=== PATIENT | female | born 1955 | race Caucasian/White ===

== ENCOUNTER → 2016-05-31 | Outpatient (CLI) | payer OTHER ==
[~2016-05-31] MED LIST: ADVIL200 MG PO; ASPIRIN 81M81 MG/TA2 PO; BUSPAR10 MG PO; COMBIRESP IH; EFFEXOR 75M75 MG/TAB PO; FLOVENT 110MCG7.9 GM IH; ISOPTIN SR180 M1 PO; KLONOPIN 0.5MG0.5 MG PO; LEVAQUIN 750MG750 M1 PO; MOBIC15 MG PO; NEURONTIN100 MG/CAP PO; NORCO 325 MG-7.1 TAB PO; PROAIR HFA0.09 MG/AC IH; PROTONIX20 MG PO; RT SPIRIVA18 MCG IH; SEROQUEL 2525 MG/TAB PO; STOOL SOFTENER100 M2 PO; ULTRAM 50MG TAB50 MG PO
== END ==
LOC: COL.PUL 09:37
DX: Z02.71 Encounter for disability determination (principal); J44.9 Chronic obstructive pulmonary disease, unspecified

== ENCOUNTER 2020-11-08 10:54 | Emergency (ER) | payer MEDICARE, BC ==
[~2020-11-08] VITALS: Ht 160 cm; Wt 79.1 kg
[2020-11-08 11:08] VITALS: TEMP 97.3
[2020-11-08 11:34] LABS: BASO # 0.1 (0.0-0.2); BASO % 1.1 % (0.0-2.0); EOS % 0.5 % (0-4.0); GRAN # 6.2 (1.4-6.5); GRAN % 76.5 % (42.2-75.2); HEMOGLOBIN 11.4 g/dl (12.5-16.0); LYMPH # 1.5 (1.2-3.4); LYMPH % 17.9 % (20.0-51.0); MEAN CELL VOLUME 93 fl (80.0-100.0); MEAN CORPUSCULAR HEMOGLOBIN 31 pg (27.0-31.0); MEAN CORPUSCULAR HGB CONC 33 g/dl (33.0-37.0); MEAN PLATELET VOLUME 12.1 fl (7.4-10.4); MONO # 0.3 (0.1-0.6); MONO % 3.8 % (1.7-9.3); PLATELET COUNT 280 K/mm3 (130-400); RED BLOOD COUNT 3.66 M/mm3 (4.10-5.30); REDCELL DISTRIBUTION WIDTH-CV 13.5 % (11.5-14.5)
[2020-11-08 11:54] LABS: HEMATOCRIT 34.2 % (37.0-47.0)
[2020-11-08 12:40] LABS: ALANINE AMINOTRANSFERASE 16 U/L (4-34); ALBUMIN 4.2 gm/dL (3.5-5.0); ALKALINE PHOSPHATASE 69 U/L (50-136); ANION GAP 6 mmol/L (7-16); AST,SGOT 31 U/L (15-37); BILIRUBIN,TOTAL < 0.1 mg/dL (0.0-1.0); BLOOD UREA NITROGEN 9 mg/dL (7-17); CALCIUM 9.1 mg/dL (8.4-10.2); CARBON DIOXIDE 33 mmol/L (22-30); CHLORIDE 100 mmol/L (98-107); CREATININE, serum 0.71 (0.52-1.25); GLUCOSE 93 mg/dL (74-106); SODIUM 139 mmol/L (137-145); TOTAL PROTEIN 7.1 gm/dL (6.4-8.2)
[2020-11-08] MEDS ORDERED: PREDNISONE20 MG PO (13:14)
[2020-11-08] MEDS ORDERED: DOXYCYCLINE 10100 MG PO ×2 (13:14→13:30)
[2020-11-08 13:23] VITALS: BP 145/69; PULSE 78
== END 2020-11-08 13:31 | disposition home or self-care (01) ==
LOC: COL.ER 10:54
PROVIDERS: Personal Emergency Response Attendant
DX: J44.9 Chronic obstructive pulmonary disease, unspecified (principal); R09.02 Hypoxemia; J18.9 Pneumonia, unspecified organism; I10 Essential (primary) hypertension; F32.9 Major depressive disorder, single episode, unspecified; F41.9 Anxiety disorder, unspecified; Z87.891 Personal history of nicotine dependence; Z20.822 Contact with and (suspected) exposure to COVID-19; Z79.899 Other long term (current) drug therapy
CPT/HCPCS: J2930